=== PATIENT | male | born 1965 | race African-American/Black ===

== ENCOUNTER 2022-10-19 22:08 | Emergency (ER) | payer OTHER ==
--- NOTE | 2022-10-19 22:19 | ED Abdominal Pain ---
General Stated Complaint: ABDOMINAL PAIN Source of Information: Patient, EMS, EMS Notes Reviewed Exam Limitations: No Limitations History of Present Illness Date Seen by Provider: October 19, 2022 Time Seen by Provider: 22:10 Initial Comments 57-year-old male presents emergency department today via EMS for abdominal pain. This started about 40 minutes prior to arrival and has been constant, severe since that time. Described as sharp and starting in his periumbilical region radiating out diffusely throughout his abdomen. He had nausea just as the ambulance pulled into the ER but has not had nausea outside of this. No vomiting. No urinary symptoms. No changes in his bowels. No testicular or penile symptoms. He had a similar episode about a week ago that lasted most of the day and resolved on its own. He did not get evaluated at that time. He has had no abdominal surgeries. He has never had similar symptoms in the past. All other systems reviewed and negative except documented per HPI. Voice recognition software was used to help create this chart Allergies and Home Medications Allergies Coded Allergies: No Known Drug Allergies (Unverified , 10/19/22) Patient Home Medication List Home Medication List Reviewed: Yes Review of Systems Review of Systems Constitutional: see HPI Past Grppynz-Shtazg-Rvcuhm Hx Patient Social History Tobacco Use?: No Use of E-Cig and/or Vaping dev: No Substance use?: No Alcohol Use?: No Family Medical History Reviewed Nursing Family Hx No Pertinent Family Hx Physical Exam Vital Signs Vital Signs - First Documented 10/19/22 22:12 Pulse 82 Resp 16 B/P (MAP) 145/85 (105) Pulse Ox 99 O2 Delivery Room Air Capillary Refill : Height/Weight/BMI Height: '" Weight: lbs. oz. kg; BMI Method: General Appearance: WD/WN, no apparent distress HEENT: normal ENT inspection Neck: non-tender, full range of motion, supple, normal inspection Respiratory: chest non-tender, lungs clear, normal breath sounds, no respiratory distress, no accessory muscle use Cardiovascular: regular rate, rhythm, no murmur Gastrointestinal: normal bowel sounds, soft, no organomegaly, tenderness (Diffuse abdominal tenderness even with light palpation. Voluntary guarding without any rebound tenderness. No mass organomegaly. No skin changes.) Neurologic/Psychiatric: alert, normal mood/affect, oriented x 3 Skin: normal color, warm/dry Progress/Results/Core Measures Results/Orders Lab Results Laboratory Tests Test 10/19/22 22:16 10/19/22 22:34 Range/Units White Blood Count 8.3 4.3-11.0 10^3/uL Red Blood Count 4.16 L 4.30-5.52 10^6/uL Hemoglobin 12.6 L 13.3-17.7 g/dL Hematocrit 36 L 40-54 % Mean Corpuscular Volume 87 80-99 fL Mean Corpuscular Hemoglobin 30 25-34 pg Mean Corpuscular Hemoglobin Concent 35 32-36 g/dL Red Cell Distribution Width 13.6 10.0-14.5 % Platelet Count 216 130-400 10^3/uL Mean Platelet Volume 10.4 9.0-12.2 fL Immature Granulocyte % (Auto) 0 % Neutrophils (%) (Auto) 39 L 42-75 % Lymphocytes (%) (Auto) 52 H 12-44 % Monocytes (%) (Auto) 8 0-12 % Eosinophils (%) (Auto) 0 0-10 % Basophils (%) (Auto) 1 0-10 % Neutrophils # (Auto) 3.3 1.8-7.8 10^3/uL Lymphocytes # (Auto) 4.3 H 1.0-4.0 10^3/uL Monocytes # (Auto) 0.7 0.0-1.0 10^3/uL Eosinophils # (Auto) 0.0 0.0-0.3 10^3/uL Basophils # (Auto) 0.0 0.0-0.1 10^3/uL Immature Granulocyte # (Auto) 0.0 0.0-0.1 10^3/uL Neutrophils % (Manual) 37 % Lymphocytes % (Manual) 54 % Monocytes % (Manual) 7 % Eosinophils % (Manual) 2 % Clumped Platelets OCCASIONAL Percent Immature Platelet Fraction 3.7 0.0-7.6 % Blood Morphology Comment NORMAL Sodium Level 135 135-145 MMOL/L Potassium Level 6.3 H 3.6-5.0 MMOL/L Chloride Level 102 98-107 MMOL/L Carbon Dioxide Level 18 L 21-32 MMOL/L Anion Gap 15 H 5-14 MMOL/L Blood Urea Nitrogen 16 7-18 MG/DL Creatinine 1.12 0.60-1.30 MG/DL Estimat Glomerular Filtration Rate 76 BUN/Creatinine Ratio 14 Glucose Level 84 70-105 MG/DL Calcium Level 9.2 8.5-10.1 MG/DL Corrected Calcium 9.0 8.5-10.1 MG/DL Total Bilirubin 0.3 0.1-1.0 MG/DL Aspartate Amino Transf (AST/SGOT) 95 H 5-34 U/L Alanine Aminotransferase (ALT/SGPT) 47 0-55 U/L Alkaline Phosphatase 85 40-136 U/L Total Protein 8.3 H 6.4-8.2 GM/DL Albumin 4.3 3.2-4.5 GM/DL Lipase 37 8-78 U/L Smear Scan YES Urine Color YELLOW Urine Clarity CLEAR Urine pH 6.0 5-9 Urine Specific [place] <=1.005 1.016-1.022 Urine Protein NEGATIVE NEGATIVE Urine Glucose (UA) NEGATIVE NEGATIVE Urine Ketones NEGATIVE NEGATIVE Urine Nitrite NEGATIVE NEGATIVE Urine Bilirubin NEGATIVE NEGATIVE Urine Urobilinogen 0.2 < = 1.0 MG/DL Urine Leukocyte Esterase NEGATIVE NEGATIVE Urine RBC (Auto) NEGATIVE NEGATIVE Urine RBC NONE /HPF Urine WBC NONE /HPF Urine Crystals NONE /LPF Urine Bacteria NEGATIVE /HPF Urine Casts NONE /LPF Urine Mucus NEGATIVE /LPF Urine Culture Indicated NO My Orders Orders - OFELIA DSOUZA DO Comprehensive Metabolic Panel (10/19/22 22:16) Cbc And Manual Diff (10/19/22 22:16) Lipase (10/19/22 22:16) Urinalysis (10/19/22 22:16) Ct Abdomen/Pelvis W (10/19/22 22:16) Ns Iv 1000 Ml (Sodium Chloride 0.9%) (10/19/22 23:00) Vital Signs/I&O 10/19/22 22:12 Pulse 82 Resp 16 B/P (MAP) 145/85 (105) Pulse Ox 99 O2 Delivery Room Air Departure Communication (Admissions) After identifying hyperkalemia on his labs I ordered some IV fluids. Was getting ready to order some of the therapy including EKG. The patient declined this. He was on his way to CT scan but stated he felt much better and started asking to leave. I had advised him that hypokalemia can be life-threatening and cause heart rhythm abnormalities and he stated understanding. He request further treatment. He declined CT scan and states he will do his primary care doctor tomorrow. Again declines any other treatment at this time and requests to leave. He signed out AGAINST MEDICAL ADVICE. Impression Primary Impression: Abdominal pain Qualified Codes: R10.84 - Generalized abdominal pain Additional Impression: Hyperkalemia Disposition: AGAINST MEDICAL ADVICE Condition: Against Medical Advice Departure-Patient Inst. Patient Instructions: Abdominal Pain, Adult ED, Hyperkalemia Add. Discharge Instructions: You declined any further treatment in the emergency department. Please note that elevated potassium levels can be life-threatening can cause heart rhythm abnormalities as discussed. I recommend you stay and let us treat this however you have declined stating a video primary doctor tomorrow. And also declined a CT scan. Return to the emergency department for reevaluation if you change your mind or if your symptoms change in any way concerning to you. OFELIA DSOUZA DO October 19, 2022 22:19
[2022-10-19 22:26] LABS: BASOPHILS % (AUTO) 1 % (0-10); HEMOGLOBIN 12.6 g/dL (13.3-17.7); MEAN CORPUSCULAR HEMOGLOBIN 30 pg (25-34); MEAN PLATELET VOLUME 10.4 fL (9.0-12.2)
[2022-10-19 22:27] LABS: EOSINOPHILS % (AUTO) 0 % (0-10); HEMATOCRIT 36 % (40-54); LYMPHOCYTES # (AUTO) 4.3 10^3/uL (1.0-4.0); LYMPHOCYTES % (AUTO) 52 % (12-44); MEAN CORPUSCULAR HGB CONC 35 g/dL (32-36); MEAN CORPUSCULAR VOLUME 87 fL (80-99); MONOCYTES # (AUTO) 0.7 10^3/uL (0.0-1.0); MONOCYTES % (AUTO) 8 % (0-12); NEUTROPHILS # (AUTO) 3.3 10^3/uL (1.8-7.8); NEUTROPHILS % (AUTO) 39 % (42-75); WHITE BLOOD COUNT 8.3 10^3/uL (4.3-11.0)
[2022-10-19 22:41] LABS: BILIRUBIN,URINE NEGATIVE (NEGATIVE); CLARITY,URINE CLEAR; COLOR,URINE YELLOW; GLUCOSE, URINE (UA) NEGATIVE (NEGATIVE); KETONES,URINE NEGATIVE (NEGATIVE); LEUKOCYTE ESTERASE ,URINE NEGATIVE (NEGATIVE); NITRITE,URINE NEGATIVE (NEGATIVE); PROTEIN,URINE NEGATIVE (NEGATIVE)
[2022-10-19 22:47] LABS: ALBUMIN 4.3 GM/DL (3.2-4.5); BILIRUBIN,TOTAL 0.3 MG/DL (0.1-1.0); CALCIUM 9.2 MG/DL (8.5-10.1); CREATININE SERUM 1.12 MG/DL (0.60-1.30); POTASSIUM 6.3 MMOL/L (3.6-5.0); TOTAL PROTEIN 8.3 GM/DL (6.4-8.2)
[2022-10-19 22:57] LABS: PLATELET COUNT 216 10^3/uL (130-400)
[2022-10-19 22:58] LABS: EOSINOPHILS % (MANUAL) 2 %; LYMPHOCYTES % (MANUAL) 54 %; MONOCYTES % (MANUAL) 7 %; NEUTROPHILS % (MANUAL) 37 %; PLATELET CLUMPS OCCASIONAL; RBC MORPH NORMAL; SMEAR SCAN COMMENT YES
[2022-10-19 23:00] LABS: BACTERIA,URINE NEGATIVE /HPF
[2022-10-19] MEDS: NS IV 1000 ML 1,000 ML IV SCH ×2 (23:00→23:08)
[2022-10-19 23:07] VITALS: BP 124/98
[2022-10-21] MEDS ORDERED: ACHD5005 PO (11:41)
[2022-10-21] MEDS ORDERED: DOCU-143 PO (11:41)
== END 2022-10-19 23:10 | disposition left against medical advice (07) ==
LOC: EDUNIT# 22:08 → ER 22:09
DX: R10.84 Generalized abdominal pain (principal); E87.5 Hyperkalemia; Z28.310 Unvaccinated for COVID-19
CPT/HCPCS: 36415; 80053; 81000; 83690; 85007; 85027

== ENCOUNTER 2022-10-20 12:09 | Day surgery (SDC) | payer OTHER ==
[~2022-10-20] VITALS: Ht 185.4 cm; Wt 94.4 kg
[2022-10-20] VITALS (8 sets, daily range): BP systolic 96–129; BP diastolic 66–83
--- NOTE | 2022-10-20 12:39 | ED Abdominal Pain ---
General Chief Complaint: Abdominal/GI Problems Stated Complaint: ABD PAIN | FEVER Nursing Triage Note: PT AMB TO TRAIGE. PT CO OF FEVER UP TO 101 THIS AM, ABD PAIN 9/10, DIZZINESS PT SEEN IN ED LAST PM BUT STARTED FEELING BETTER AND LEFT AMA Source of Information: Patient Exam Limitations: No Limitations History of Present Illness Date Seen by Provider: October 20, 2022 Time Seen by Provider: 12:39 Initial Comments Patient is a 57-year-old male who presents to the emergency room with a chief complaint of periumbilical abdominal pain starting 2 days ago that has now b ecome generalized. Decreased appetite significant nausea. reports fever of 101 this morning. He has had no prior abdominal surgeries. He denies diarrhea, black or bloody stools. He states his urine is very "dark". Timing/Duration: 2-3 Days Severity/Quality: Severe, Aching Location: Generalized Abdomen Radiation: Flank (left flank) Associated Symptoms: Nausea/Vomiting (nausea without vomiting), Other (dark urine) Allergies and Home Medications Allergies Coded Allergies: No Known Drug Allergies (Unverified , 10/19/22) Patient Home Medication List Home Medication List Reviewed: Yes Docusate Sodium (Colace) 100 Mg Capsule, 100 MG PO BID Prescribed by: GREG WRIGHT on 10/21/22 1141 Hydrocodone/Acetaminophen (Hydrocodone-Acetamin 5-325 mg) 5 Mg-325 Mg Tablet, 1 EACH PO Q4H PRN for PAIN-MODERATE (5-7) Prescribed by: GREG WRIGHT on 10/21/22 1142 Review of Systems Review of Systems Constitutional: see HPI EENTM: No Symptoms Reported Respiratory: No Symptoms Reported Cardiovascular: No Symptoms Reported Gastrointestinal: Abdominal Pain, Nausea Genitourinary: Other (dark urine) Musculoskeletal: no symptoms reported Skin: no symptoms reported Past Nvplnug-Hippkf-Tbrywg Hx Patient Social History Tobacco Use?: No Smoking Status: Current Everyday Smoker Smokeless Tobacco Frequency: Current Everyday User Substance use?: No Alcohol Use?: Yes Alcohol type: Beer Alcohol Frequency: Daily Pt feels they are or have been: No Immunizations Up To Date Influenza Vaccine Up-to-Date: No; Not Current Past Medical History Surgery/Hospitalization HX: HTN Family Medical History No Pertinent Family Hx Physical Exam Vital Signs Capillary Refill : Less Than 3 Seconds Height/Weight/BMI Height: '" Weight: lbs. oz. kg; 27.00 BMI Method: General Appearance: WD/WN, no apparent distress HEENT: PERRL/EOMI Respiratory: lungs clear, normal breath sounds, no respiratory distress, no accessory muscle use Cardiovascular: regular rate, rhythm Gastrointestinal: abnormal bowel sounds (hypoactive), distended, rebound, tenderness Extremities: normal range of motion, non-tender, normal inspection, no pedal edema, normal capillary refill Neurologic/Psychiatric: alert, normal mood/affect, oriented x 3 Skin: normal color, warm/dry Progress/Results/Core Measures Results/Orders Lab Results Laboratory Tests Test 10/20/22 12:50 Range/Units White Blood Count 8.3 4.3-11.0 10^3/uL Red Blood Count 4.35 4.30-5.52 10^6/uL Hemoglobin 13.1 L 13.3-17.7 g/dL Hematocrit 38 L 40-54 % Mean Corpuscular Volume 87 80-99 fL Mean Corpuscular Hemoglobin 30 25-34 pg Mean Corpuscular Hemoglobin Concent 35 32-36 g/dL Red Cell Distribution Width 13.7 10.0-14.5 % Platelet Count 245 130-400 10^3/uL Mean Platelet Volume 10.6 9.0-12.2 fL Immature Granulocyte % (Auto) 0 % Neutrophils (%) (Auto) 83 H 42-75 % Lymphocytes (%) (Auto) 10 L 12-44 % Monocytes (%) (Auto) 6 0-12 % Eosinophils (%) (Auto) 0 0-10 % Basophils (%) (Auto) 0 0-10 % Neutrophils # (Auto) 6.9 1.8-7.8 10^3/uL Lymphocytes # (Auto) 0.8 L 1.0-4.0 10^3/uL Monocytes # (Auto) 0.5 0.0-1.0 10^3/uL Eosinophils # (Auto) 0.0 0.0-0.3 10^3/uL Basophils # (Auto) 0.0 0.0-0.1 10^3/uL Immature Granulocyte # (Auto) 0.0 0.0-0.1 10^3/uL Sodium Level 139 135-145 MMOL/L Potassium Level 3.9 3.6-5.0 MMOL/L Chloride Level 101 98-107 MMOL/L Carbon Dioxide Level 25 21-32 MMOL/L Anion Gap 13 5-14 MMOL/L Blood Urea Nitrogen 13 7-18 MG/DL Creatinine 1.23 0.60-1.30 MG/DL Estimat Glomerular Filtration Rate 68 BUN/Creatinine Ratio 11 Glucose Level 122 H 70-105 MG/DL Calcium Level 10.0 8.5-10.1 MG/DL Corrected Calcium 9.6 8.5-10.1 MG/DL Total Bilirubin 2.0 H 0.1-1.0 MG/DL Direct Bilirubin 1.5 H 0.0-0.3 MG/DL Aspartate Amino Transf (AST/SGOT) 471 H 5-34 U/L Alanine Aminotransferase (ALT/SGPT) 338 H 0-55 U/L Alkaline Phosphatase 148 H 40-136 U/L Total Protein 7.9 6.4-8.2 GM/DL Albumin 4.5 3.2-4.5 GM/DL Lipase 27 8-78 U/L My Orders Orders - HANNAH EARLY MD Ed Iv/Invasive Line Start (10/20/22 12:48) Cbc With Automated Diff (10/20/22 12:48) Comprehensive Metabolic Panel (10/20/22 12:48) Ct Abd/Pelv W (Appendicitis) (10/20/22 12:48) Ns Iv 1000 Ml (Sodium Chloride 0.9%) (10/20/22 12:48) Fentanyl Inj (Sublimaze Injection) (10/20/22 13:00) Ondansetron Injection (Zofran Injectio (10/20/22 13:00) Iohexol Injection (Omnipaque 350 Mg/Ml 1 (10/20/22 13:00) Received Contrast (Hold Metformin- Contr (10/20/22 13:00) Ns (Ivpb) (Sodium Chloride 0.9% Ivpb Bag (10/20/22 13:00) Acetaminophen Tablet (Tylenol Tablet) (10/20/22 15:00) Ns Iv 1000 Ml (Sodium Chloride 0.9%) (10/20/22 15:00) Lipase (10/20/22 14:59) Bilirubin,Direct (10/20/22 15:00) Us Gallbladder [id number] (10/20/22 15:16) Fentanyl Inj (Sublimaze Injection) (10/20/22 15:30) Piperacillin Sodium/Tazobactam (Zosyn Vi (10/20/22 16:45) Bupivacaine 0.5% W/Epi Inj (Sensorcaine (10/20/22 17:00) Medications Given in ED Vital Signs/I&O Blood Pressure Mean: 95 Progress Progress Note : Progress Note Patient seen and evaluated by me. Eval today includes physical exam, CBC, CH12 with a direct bili level. CT abd and pelvis as well as GB ultrasound. Physical exam is pertinent for WDWN male in mild distress due to abdominal pain. Heart is regular. Lungs are clear, Abdomen is diffusely tender with mild rebound. Hypoactive BS, + heel tap with voluntary guarding. No other concerning physical exam findings. DDx based on H&P includes acute appendicitis, ileus vs partial SBO. Labs reviewed - CBC is normal with WBC 8.3 (83 s) normal H/H. basic electrolytes and renal function WNL - LFT's significantly elevated with AST 471, ALT 338 and Alc phos 148, Total bili 2.0 and direct 1.5. This is a significant increase over just 12 hours when the patient left AMA earlier in the night. Concern for liver/GB pathology. INquired to the patient about etoh last night - reported none, infrequent use. PAtient treated with IV fluids, fentanyl and nausea meds. CAse discussed with Dr Wright (surg). CT was unremarkable for acute pathology and GB ultrasound was concerning for possible cholecystitis. Dr Wright came to the ED to see the patient and felt best case scenario was to take the patient for ex lap. Patient was advised of plan of care, shared decision making - agreeable. Diagnostic Imaging Diagonstic Imaging: CT Comments [facility] [place] NAME: TRAM HERNANDEZ [facility] REC#: [id number] PT STATUS: REG ER : 1965 PHYSICIAN: HANNAH EARLY MD ADMIT DATE: 10/20/22/ER Signed Date of Exam:10/20/22 CT ABD/PELV W (APPENDICITIS) CT ABD/PELV W (APPENDICITIS) TECHNIQUE: Multiple contiguous axial images were obtained through the abdomen and pelvis after administration of intravenous contrast. All CT scans use one or more of the following dose optimizing techniques: automated exposure control, MA and/or KvP adjustment based on patient size and exam type or iterative reconstruction. INDICATION: Right lower quadrant pain COMPARISON: None available. FINDINGS: Lower chest: The lung bases are clear. No pericardial or pleural effusion. Peritoneum: No free intraperitoneal air or fluid. Liver and biliary system: The liver is normal. The gallbladder is normal. No biliary duct dilation. Spleen and Pancreas: Spleen is normal. The pancreas enhances normally without mass lesion or peripancreatic inflammatory changes. Adrenals: Normal. tract: The kidneys enhance normally without suspicious mass or obstruction. Urinary bladder is distended without wall thickening. Prostate is normal. GI tract: Stomach is decompressed. No bowel obstruction. Sigmoid and descending colon diverticulosis without diverticulitis. Normal appendix. Vasculature and Lymph nodes: Normal caliber aorta. No abdominal or pelvic lymphadenopathy. Musculoskeletal: No concerning osseous lesion. IMPRESSION: 1. No acute obstructive or inflammatory process. 2. Normal appendix and no ureteral stones. Dictated by: Dictated on workstation # [id number] Dict: 10/20/22 1406 Trans: 10/20/22 1408 [facility] [id number] Interpreted by: ALISSON WATSON MD Electronically signed by: ALISSON WATSON MD 10/20/22 1408 Departure Communication (Admissions) Time/Spoke to Consulting Phy: 14:[address] Wright, will review CT Impression Primary Impression: Abdominal pain Qualified Codes: R10.30 - Lower abdominal pain, unspecified Additional Impressions: Cholelithiasis Elevated LFTs Disposition: ADMITTED INPATIENT Condition: Stable Admissions Decision to Admit/Date: October 20, 2022 Time/Decision to Admit Time: 17:21 Departure-Patient Inst. Referrals: GRZEGORZ PACK DO (PCP) Primary Care Physician Scripts Hydrocodone/Acetaminophen (Hydrocodone-Acetamin 5-325 mg) 5 Mg-325 Mg Tablet 1 EACH PO Q4H PRN for PAIN-MODERATE (5-7), #30 TAB Prov: GREG WRIGHT DO 10/21/22 Docusate Sodium (Colace) 100 Mg Capsule 100 MG PO BID, #30 CAP Prov: GREG WRIGHT DO 10/21/22 HANNAH EARLY MD October 20, 2022 12:39
[2022-10-20] MEDS ORDERED: NS IV 1000 ML 1,000 ML IV STA (12:48)
[2022-10-20] MEDS ORDERED: IOHEXOL 350 MG/ML 100 ML (OMNIPAQUE 350) VIAL IV ONE (13:00)
[2022-10-20] MEDS ORDERED: NS 100 ML (IVPB) BAG IV ONE (13:00)
[2022-10-20] MEDS ORDERED: HOLD METFORMIN - RECEIVED CONTRAST 20 ML VIAL IV SCH (13:00)
[2022-10-20] MEDS ORDERED: fentaNYL INJ 100 MCG/2 ML AMP IVP ONE ×2 (13:00→15:30)
[2022-10-20] MEDS ORDERED: ONDANSETRON 4 MG/2 ML (SDV) Z0FRAN IVP ONE (13:00)
[2022-10-20 13:26] LABS: ALBUMIN 4.5 GM/DL (3.2-4.5); POTASSIUM 3.9 MMOL/L (3.6-5.0)
[2022-10-20 13:28] LABS: TOTAL PROTEIN 7.9 GM/DL (6.4-8.2)
[2022-10-20 13:32] LABS: BASOPHILS % (AUTO) 0 % (0-10); CREATININE SERUM 1.23 MG/DL (0.60-1.30); EOSINOPHILS % (AUTO) 0 % (0-10); HEMATOCRIT 38 % (40-54); HEMOGLOBIN 13.1 g/dL (13.3-17.7); LYMPHOCYTES # (AUTO) 0.8 10^3/uL (1.0-4.0); LYMPHOCYTES % (AUTO) 10 % (12-44); MEAN CORPUSCULAR HEMOGLOBIN 30 pg (25-34); MEAN CORPUSCULAR HGB CONC 35 g/dL (32-36); MEAN CORPUSCULAR VOLUME 87 fL (80-99); MEAN PLATELET VOLUME 10.6 fL (9.0-12.2); MONOCYTES # (AUTO) 0.5 10^3/uL (0.0-1.0); MONOCYTES % (AUTO) 6 % (0-12); NEUTROPHILS # (AUTO) 6.9 10^3/uL (1.8-7.8); NEUTROPHILS % (AUTO) 83 % (42-75); PLATELET COUNT 245 10^3/uL (130-400); WHITE BLOOD COUNT 8.3 10^3/uL (4.3-11.0)
--- NOTE | 2022-10-20 14:09 | Diagnostic Imaging Report ---
CT ABD/PELV W (APPENDICITIS) TECHNIQUE: Multiple contiguous axial images were obtained through the abdomen and pelvis after administration of intravenous contrast. All CT scans use one or more of the following dose optimizing techniques: automated exposure control, MA and/or KvP adjustment based on patient size and exam type or iterative reconstruction. INDICATION: Right lower quadrant pain COMPARISON: None available. FINDINGS: Lower chest: The lung bases are clear. No pericardial or pleural effusion. Peritoneum: No free intraperitoneal air or fluid. Liver and biliary system: The liver is normal. The gallbladder is normal. No biliary duct dilation. Spleen and Pancreas: Spleen is normal. The pancreas enhances normally without mass lesion or peripancreatic inflammatory changes. Adrenals: Normal. tract: The kidneys enhance normally without suspicious mass or obstruction. Urinary bladder is distended without wall thickening. Prostate is normal. GI tract: Stomach is decompressed. No bowel obstruction. Sigmoid and descending colon diverticulosis without diverticulitis. Normal appendix. Vasculature and Lymph nodes: Normal caliber aorta. No abdominal or pelvic lymphadenopathy. Musculoskeletal: No concerning osseous lesion. IMPRESSION: 1. No acute obstructive or inflammatory process. 2. Normal appendix and no ureteral stones. Dictated by: Dictated on workstation # [id number]
[2022-10-20] MEDS ORDERED: NS IV 1000 ML 1,000 ML IV SCH (15:00)
[2022-10-20] MEDS ORDERED: ACETAMINOPHEN 500 MG TAB (TYLENOL) PO ONE (15:00)
[2022-10-20 15:14] LABS: BILIRUBIN,DIRECT 1.5 MG/DL (0.0-0.3)
--- NOTE | 2022-10-20 16:06 | Consultation - Surgery ---
MIKAL PALMER 10/20/22 1606: History of Present Illness History of Present Illness Patient Consulted On(ibeth/time) 10/20/22 16:04 Date Seen by Provider: October 20, 2022 Time Seen by Provider: 16:05 Reason for Visit: abdominal pain History of Present Illness Consult for Dr. Sy CC: Abdominal pain Per ED: Patient is a 57-year-old male who presents to the emergency room with a chief complaint of periumbilical abdominal pain starting 2 days ago that has now become generalized. Decreased appetite significant nausea. reports fever of 101 this morning. He has had no prior abdominal surgeries. He denies diarrhea, black or bloody stools. He states his urine is very "dark" Pt was seen in the emergency room and was able to isolate his pain to his lower left quadrant, he said the pain was radiating to his left flank and was a constant sharper pain. CT was unremarkable for inflammation or obstruction, and Ultra Sound was revealing of a few small stones within the gallbladder. He says its been about 24hrs since his last bowel movement and that he usually goes 2- 3x/day. He hasnt eaten/drank since last night, and says that nothing seems to be helping or worsening his symptoms. He is nauseas but denies chest pain, sob, diarrhea, chills and fevers currently. Allergies and Home Medications Allergies Coded Allergies: No Known Drug Allergies (Unverified , 10/19/22) Past Xpezrqb-Jnvcvj-Knofbm Hx Patient Social History Smoking Status: Current Everyday Smoker Alcohol Use?: Yes Have you traveled recently?: No Surgeries History of Surgeries: Yes (Right wrist) Family Medical History Significant Family History: No Pertinent Family Hx Review of Systems-General Constitutional: No chills, No weakness EENTM: No blurred vision, No hoarseness Respiratory: No cough, No dyspnea on exertion, No short of breath Cardiovascular: No chest pain, No palpitations Gastrointestinal: abdominal pain (LLQ); No diarrhea; nausea Genitourinary: No dysuria, No hematuria Musculoskeletal: back pain; No joint pain Skin: No lesions, No lumps Psychiatric/Neurological: Denies Headache, Denies Numbness, Denies Tremors Physical Exam-General Problems Physical Exam Vital Signs Vital Signs - First Documented 10/20/22 12:15 Temp 36.9 Pulse 107 Resp 16 B/P (MAP) 128/79 (95) Pulse Ox 100 Capillary Refill : Less Than 3 Seconds General Appearance: WD/WN, moderate distress HEENT: PERRL/EOMI; No photophobia Neck: non-tender, full range of motion Respiratory: chest non-tender, lungs clear Cardiovascular: no murmur, tachycardia Peripheral Pulses: 2+ Radial Pulses (R), 2+ Radial Pulses (L) Gastrointestinal: soft, no pulsatile mass, guarding; No rebound; tenderness Back: no vertebral tenderness, CVA tenderness (L) Extremities: normal range of motion, non-tender, no pedal edema, no calf tenderness Neurologic/Psychiatric: alert, oriented x 3; No aphasia Skin: damp; No ecchymosis Lymphatic: no adenopathy (anterior cervical) Data Review Labs Laboratory Tests 10/20/22 12:50: White Blood Count 8.3, Red Blood Count 4.35, Hemoglobin 13.1L, Hematocrit 38L, Mean Corpuscular Volume 87, Mean Corpuscular Hemoglobin 30, Mean Corpuscular Hemoglobin Concent 35, Red Cell Distribution Width 13.7, Platelet Count 245, Mean Platelet Volume 10.6, Immature Granulocyte % (Auto) 0, Neutrophils (%) (Auto) 83H, Lymphocytes (%) (Auto) 10L, Monocytes (%) (Auto) 6, Eosinophils (%) (Auto) 0, Basophils (%) (Auto) 0, Neutrophils # (Auto) 6.9, Lymphocytes # (Auto) 0.8L, Monocytes # (Auto) 0.5, Eosinophils # (Auto) 0.0, Basophils # (Auto) 0.0, Immature Granulocyte # (Auto) 0.0, Sodium Level 139, Potassium Level 3.9, Chloride Level 101, Carbon Dioxide Level 25, Anion Gap 13, Blood Urea Nitrogen 13, Creatinine 1.23, Estimat Glomerular Filtration Rate 68, BUN/Creatinine Ratio 11, Glucose Level 122H, Calcium Level 10.0, Corrected Calcium 9.6, Total Bilirubin 2.0H, Direct Bilirubin 1.5H, Aspartate Amino Transf (AST/SGOT) 471H, Alanine Aminotransferase (ALT/SGPT) 338H, Alkaline Phosphatase 148H, Total Protein 7.9, Albumin 4.5, Lipase 27 Assessment/Plan Assessment/Plan Assessment/Plan Abdominal Pain Nausea Hyperbilirubinemia * CT imaging unremarkable for obstruction/inflammation, left testicular hydrocele noted. * small stones seen in gallblader via US, common bile duct appeared patent * will await reports on further imaging * will continue to monitor patient with ED for any need of surgical intervention GREG CHAU DO 10/20/22 1644: History of Present Illness History of Present Illness History of Present Illness Seen and evaluated in ED. Patient is a 57 year old male having periumbilical pain. Had about a week but last 2 days has worsened and now constant sharp pain. Radiates into back. Having nausea. Fever present. Not wanting food. Had ct scan with no significant findings. U/s done and shows stone and distended gallbladder. From last night labs had elevated liver enzymes and bilirubin increased. Allergies and Home Medications Allergies Coded Allergies: No Known Drug Allergies (Unverified , 10/19/22) Patient Home Medication List Home Medication List Reviewed: Yes Past Nkbegat-Hsywal-Qyvtgg Hx Patient Social History Smoking Status: Current Someday Smoker Alcohol Use?: Yes Surgeries History of Surgeries: Yes (Right wrist) Respiratory History of Respiratory Disorde: No Cardiovascular History of Cardiac Disorders: No Neurological History of Neurological Disord: No Genitourinary History of Genitourinary Disor: No Gastrointestinal History of Gastrointestinal Di: No Musculoskeletal History of Musculoskeletal Dis: No Endocrine History of Endocrine Disorders: No HEENT History of HEENT Disorders: No Cancer History of Cancer: No Psychosocial History of Psychiatric Problem: No Integumentary History of Skin or Integumenta: No Blood Transfusions History of Blood Disorders: No Adverse Reaction to a Blood Tr: No Reviewed Nursing Assessment Reviewed/Agree w Nursing PMH: Yes Family Medical History Significant Family History: No Pertinent Family Hx Review of Systems-General Constitutional: No chills; fever; No weakness EENTM: No blurred vision, No hoarseness Gastrointestinal: abdominal pain (LLQ); No diarrhea; nausea; No vomiting Genitourinary: No decreased output, No discharge Musculoskeletal: back pain; No joint pain Skin: No change in color, No change in hair/nails Psychiatric/Neurological: Denies Anxiety, Denies Depressed, Denies Emotional Problems All Other Systems Reviewed Negative Unless Noted: Yes (Negative excepted noted.) Physical Exam-General Problems Physical Exam General Appearance: WD/WN, no apparent distress (but uncomfortable); No moderate distress HEENT: PERRL/EOMI, normal ENT inspection Neck: non-tender, full range of motion Respiratory: chest non-tender, lungs clear Cardiovascular: regular rate, rhythm, no JVD, tachycardia Gastrointestinal: soft; No guarding, No rebound; tenderness (periumbilical pain); No hernia Rectal: No deferred Back: no CVA tenderness, no vertebral tenderness Extremities: normal range of motion, non-tender Neurologic/Psychiatric: alert, normal mood/affect, oriented x 3 Skin: normal color, warm/dry Lymphatic: no adenopathy (anterior cervical) Assessment/Plan Assessment/Plan Assessment/Plan Abdominal Pain cholelithiasis with distended gallbladder Nausea Hyperbilirubinemia * CT imaging unremarkable for obstruction/inflammation, left testicular hydrocele noted. * small stones seen in gallblader via US, common bile duct appeared patent * consent for laparoscopic cholecystectomy all other indicated procedures. * feel likely source of patient symptoms are from the gallbladder, chance they are not. Liver enzymes increased and bilirubin as well possible cbd stone causing obstruction ioc will help determine this as well. Supervisory-Addendum Brief Verification & Attestation Participated in pt care: history, MDM, physical Personally performed: exam, history, MDM, supervision of care Care discussed with: Medical Student Procedures: n/a Results interpretation: Verified all documentation Verification and Attestation of Medical Student E/M Service A medical student performed and documented this service in my presence. I reviewed and verified all information documented by the medical student and made modifications to such information, when appropriate. I personally performed the physical exam and medical decision making. Greg Chau, October 20, 2022,16:50 MIKAL PALMER October 20, 2022 16:06 GREG CHAU DO October 20, 2022 16:44
--- NOTE | 2022-10-20 16:17 | Diagnostic Imaging Report ---
PROCEDURE: US Gallbladder. INDICATION: Abdominal pain, hyperbilirubinemia TECHNIQUE: Multiple grayscale sonographic images were obtained of the right upper quadrant of the abdomen. CORRELATION STUDY: None FINDINGS: LIVER: There is uniform echotexture within the visualized portions of the liver. The main portal vein is patent and with normal direction of flow. Liver size 16.9 x 10.2 cm. GALLBLADDER: Somewhat distended at 9.7 x 2.7 cm. Several small mobile gallstones are present. Gallbladder wall thickness within normal limits. COMMON BILE DUCT: Borderline dilated at 0.7 cm. Barron sign reported as negative. PANCREAS: Visualized portions appearing unremarkable. AORTA/IVC: Not well visualized. RIGHT KIDNEY: 9.9 x 5.6 x 5.5 cm. No hydronephrosis. OTHER: None. IMPRESSION: 1. Distended gallbladder with multiple small gallstones. No definitive findings to suggest acute cholecystitis. Dictated by: Dictated on workstation # [id number]
[2022-10-20] MEDS ORDERED: PIPERACILLIN SODIUM/TAZOBACTAM 4.5 GM in NS (IVPB) 100 ML IV ONE (16:45)
[2022-10-20] MEDS ORDERED: BUP/EPI 0.5% 1:200,000 (SENSORCAINE) 30 ML VIAL ONE (17:00)
[2022-10-20] MEDS ORDERED: ONDANSETRON 4 MG/2 ML (SDV) Z0FRAN ONE ×2 (17:34→18:01)
[2022-10-20] MEDS ORDERED: LIDOCAINE PF 2% 5 ML (XYLOCAINE) VIAL ONE (17:34)
[2022-10-20] MEDS ORDERED: MIDAZOLAM 2 MG/2 ML (VERSED) VIAL ONE (17:34)
[2022-10-20] MEDS ORDERED: ROCURONIUM 50 MG/5 ML (ZEMURON) VIAL IV ONE (17:34)
[2022-10-20] MEDS ORDERED: proPOfol 200 MG/20 ML (DIPRIVAN) VIAL IV ONE (17:34)
[2022-10-20] MEDS ORDERED: SEVOFLURANE (ULTANE) 15 ML INHAL SOLN ONE ×2 (17:34→18:42)
[2022-10-20] MEDS ORDERED: fentaNYL INJ 100 MCG/2 ML AMP ONE ×2 (17:34→18:01)
[2022-10-20] MEDS ORDERED: HYDROmorphone 2 MG/ML VIAL (DILAUDID) ONE (18:01)
[2022-10-20] MEDS ORDERED: morphine INJ 10 MG/ML 1ML (SYR OR VIAL) ONE (18:01)
[2022-10-20] MEDS ORDERED: MEPERIDINE (DEMEROL) INJ 50 MG/ML ONE (18:04)
[2022-10-20] MEDS ORDERED: GLYCOPYRROLATE 0.2 MG/ML (ROBINUL) 2 ML VIAL ONE (18:38)
[2022-10-20] MEDS ORDERED: NEOSTIGMINE (BLOXIVERZ ) 1 MG/1ML 10 ML VIAL ONE (18:38)
--- NOTE | 2022-10-20 18:47 | Progress Note-Post Operative ---
Post-Operative Progess Note Surgeon (s)/Internet Marketing Intern (s) Surgeon GREG WRIGHT DO Internet Marketing Intern: Dr. Marrufo to assist with retraction dissection and closure. Pre-Operative Diagnosis cholelithiasis Post-Operative Diagnosis cholecystitis, cholelithiasis, common bile duct stones Procedure & Operative Findings Date of Procedure 10/20/22 Procedure Performed/Findings PROCEDURE: Laparoscopic cholecystectomy with intraoperative cholangiogram. COMPLICATIONS: None. PROCEDURE: The patient was taken to the operating suite and was prepped and draped in sterile fashion. A surgical pause was performed. Just superior to the umbilicus, a 12 mm incision was made. Dissection was taken down to the fascia, which was then scored and grasped with a Irwin and the abdomen was then entered. A 0 Vicryl suture was placed in a pwjzks-wh-cdkxp fashion and a English trocar was placed and secured. Pneumoperitoneum was achieved. A 5mm trochar place in the subxyphoid and 2 in the right upper quadrant. The gallbladder was then grasped and elevated and adhesions stuck to the gallbladder and liver were taken down with cautery and blunt dissection. The cystic duct, and cystic artery were then dissected out. Clip was placed on the distal portion of the cystic duct which was then partially transected. An arrow catheter was inserted into the duct. The cholangiogram was then performed. Distal cbd filing defects were present and some contrast made its way into the duodenum. Catheter removed. Clips were placed on proximal portion of the cystic duct and then the duct was then transected. Clips were placed along the proximal and distal portion of the cystic artery which was then transected. Hook cautery was used to dissect the gallbladder from the gallbladder fossa achieving hemostasis. The gallbladder was placed in an Endobag and removed through the 12 mm trocar site. The abdomen was then reinspected. Copious amounts of irrigation were used to irrigate the abdomen and there were no signs of active bleeding. Hemostasis had been achieved. The 12 mm fascial defect was then closed with 0 Vicryl suture that had been placed in a [id number] fashion. The abdomen was then desufflated, the trocars were removed. The abdomen was then washed and dried. The skin was then closed using 4-0 Monocryl in a subcuticular fashion. The abdomen was washed and dried and Skin Affix was place over incisions. Patient tolerated the procedure well without any complications and was taken to the recovery room in stable condition. Will need set up for ERCP. Anesthesia Type general Estimated Blood Loss Estimated blood loss (mL): minimal Specimens/Packing Specimens Removed gallbladder GREG WRIGHT DO October 20, 2022 18:47
--- NOTE | 2022-10-20 18:51 | Diagnostic Imaging Report ---
CLINICAL INDICATION: Patient with lap cholecystectomy. EXAM: Single fluoroscopic image involving the right upper quadrant region for intraoperative antegrade cholangiogram. COMPARISON: Right upper quadrant ultrasound dated 10/20/2022. FINDINGS AND IMPRESSION: There is contrast filling the biliary duct. Please see clinician's report for more detail. Fluoroscopy was provided for clinician and a total of 10.6 seconds and 6.10 mGy was provided. Dictated by: Dictated on workstation # [id number]
[2022-10-20] MEDS ORDERED: LACTATED RINGERS 1,000 ML BAG IV SCH (19:00)
[2022-10-20] MEDS ORDERED: ONDANSETRON 4 MG/2 ML (SDV) Z0FRAN IVP PRN (19:00)
[2022-10-20] MEDS ORDERED: HYDROcodone/APAP 5 MG/325 MG (LORTAB) TAB PO PRN (19:00)
[2022-10-20] MEDS: LACTATED RINGERS 1,000 ML IV SCH (21:38)
[2022-10-21] MEDS: PIPERACILLIN SODIUM/TAZOBACTAM 4.5 GM in NS (IVPB) 100 ML IV SCH ×2 (02:09→07:59)
[2022-10-21 03:03] VITALS: BP 116/71
[2022-10-21 05:25] LABS: HEMATOCRIT 32 % (40-54); HEMOGLOBIN 11.1 g/dL (13.3-17.7); MEAN CORPUSCULAR HEMOGLOBIN 30 pg (25-34); MEAN CORPUSCULAR HGB CONC 34 g/dL (32-36); MEAN CORPUSCULAR VOLUME 88 fL (80-99); MEAN PLATELET VOLUME 10.4 fL (9.0-12.2); PLATELET COUNT 198 10^3/uL (130-400); WHITE BLOOD COUNT 9.3 10^3/uL (4.3-11.0)
[2022-10-21 05:36] LABS: ALBUMIN 3.5 GM/DL (3.2-4.5); POTASSIUM 3.7 MMOL/L (3.6-5.0)
[2022-10-21 05:37] LABS: CALCIUM 8.8 MG/DL (8.5-10.1)
[2022-10-21 05:38] LABS: TOTAL PROTEIN 6.5 GM/DL (6.4-8.2)
[2022-10-21 05:40] LABS: BILIRUBIN,TOTAL 3.3 MG/DL (0.1-1.0)
[2022-10-21 05:42] LABS: CREATININE SERUM 0.98 MG/DL (0.60-1.30)
[2022-10-21] MEDS: LACTATED RINGERS 1,000 ML IV SCH (05:43)
--- NOTE | 2022-10-21 07:46 | Progress Note - Surgery ---
MIKAL PALMER 10/21/22 0746: Subjective Date Seen by a Provider: October 21, 2022 Time Seen by a Provider: 07:40 Subjective/Events-last exam Pt was seen lying in bed, doing well, he said he is still having a lot of pain in the same places, LLQ and RLQ but worse on the left, he only had concerns abo ut getting to [place] and said his and father in law would pick him up to take him to get the ERCP done. He denied feeling feverish or having chills, no vomiting or diarrhea, and said that he is agreeable to leaving to head to [place]. Review of Systems General: No Chills, No Night Sweats, No Malaise; Appetite (hungry bc of NPO) HEENT: No Head Aches, No Visual Changes Pulmonary: No Dyspnea, No Cough Cardiovascular: No: Chest Pain, Palpitations Gastrointestinal: Abdominal Pain; No: Nausea, Vomiting Genitourinary: No Dysuria, No Incontinence, No Hematuria Musculoskeletal: No: neck pain, shoulder pain Neurological: No: Weakness, Numbness, Change in speech Objective Exam Vital Signs Date Time Temp Pulse Resp B/P (MAP) Pulse Ox O2 Delivery O2 Flow Rate FiO2 10/21/22 06:34 Room Air 0.00 10/21/22 03:03 37.0 82 18 116/71 (86) 95 Room Air 10/21/22 02:00 95 Room Air 10/20/22 23:45 96 Nasal Cannula 1.00 10/20/22 23:15 36.8 98 20 123/75 (91) 98 Nasal Cannula 3.00 3.00 10/20/22 19:55 Nasal Cannula 3.00 10/20/22 19:55 Nasal Cannula 3.00 10/20/22 19:50 36.2 20 124/83 (97) 98 Nasal Cannula 3.00 10/20/22 19:45 Nasal Cannula 3.00 10/20/22 19:40 20 129/83 (98) 99 Nasal Cannula 3.00 10/20/22 19:30 Nasal Cannula 3.00 10/20/22 19:30 20 129/83 (98) 100 Nasal Cannula 3.00 10/20/22 19:20 20 123/80 (94) 96 Room Air 10/20/22 19:15 OxyMask 5.00 10/20/22 19:10 20 123/81 (95) 98 OxyMask 5.00 10/20/22 19:00 20 116/79 (91) 98 OxyMask 5.00 10/20/22 19:00 OxyMask 5.00 10/20/22 18:53 OxyMask 5.00 10/20/22 18:53 36.2 20 96/66 (76) 100 OxyMask 5.00 10/20/22 17:20 107 16 128/79 100 10/20/22 14:59 36.9 10/20/22 12:59 36.9 10/20/22 12:15 36.9 107 16 128/79 (95) 100 I & O 10/21/22 07:00 Intake Total 2000 ml Output Total 1025 ml Balance 975 ml Capillary Refill : Less Than 3 SecondsLess Than 3 Seconds General Appearance: WD/WN, Mild Distress HEENT: PERRL/EOMI, Moist Mucous Membranes; No Photophobia Neck: Non Tender, Supple; No Lymphadenopathy (L), No Lymphadenopathy (R) Respiratory: Chest Non Tender, Lungs Clear, No Accessory Muscle Use, No Respiratory Distress Cardiovascular: Regular Rate, Rhythm, No Murmur Peripheral Pulses: 2+ Radial Pulses (R), 2+ Radial Pulses (L) Gastrointestinal: soft, distended, guarding, rebound, tenderness Extremity: Non Tender, No Calf Tenderness, No Pedal Edema Neurologic/Psychiatric: Alert, Oriented x3 Skin: Warm/Dry; No Ecchymosis, No Erythema, No Rash Lymphatic: No Adenopathy Results Lab Laboratory Tests 10/20/22 12:50: White Blood Count 8.3, Red Blood Count 4.35, Hemoglobin 13.1L, Hematocrit 38L, Mean Corpuscular Volume 87, Mean Corpuscular Hemoglobin 30, Mean Corpuscular Hemoglobin Concent 35, Red Cell Distribution Width 13.7, Platelet Count 245, Mean Platelet Volume 10.6, Immature Granulocyte % (Auto) 0, Neutrophils (%) (Auto) 83H, Lymphocytes (%) (Auto) 10L, Monocytes (%) (Auto) 6, Eosinophils (%) (Auto) 0, Basophils (%) (Auto) 0, Neutrophils # (Auto) 6.9, Lymphocytes # (Auto) 0.8L, Monocytes # (Auto) 0.5, Eosinophils # (Auto) 0.0, Basophils # (Auto) 0.0, Immature Granulocyte # (Auto) 0.0, Sodium Level 139, Potassium Level 3.9, Chloride Level 101, Carbon Dioxide Level 25, Anion Gap 13, Blood Urea Nitrogen 13, Creatinine 1.23, Estimat Glomerular Filtration Rate 68, BUN/Creatinine Ratio 11, Glucose Level 122H, Calcium Level 10.0, Corrected Calcium 9.6, Total Bilirubin 2.0H, Direct Bilirubin 1.5H, Aspartate Amino Transf (AST/SGOT) 471H, Alanine Aminotransferase (ALT/SGPT) 338H, Alkaline Phosphatase 148H, Total Protein 7.9, Albumin 4.5, Lipase 27 10/21/22 05:11: White Blood Count 9.3, Red Blood Count 3.69L, Hemoglobin 11.1L, Hematocrit 32L, Mean Corpuscular Volume 88, Mean Corpuscular Hemoglobin 30, Mean Corpuscular Hemoglobin Concent 34, Red Cell Distribution Width 13.8, Platelet Count 198, Mean Platelet Volume 10.4, Sodium Level 138, Potassium Level 3.7, Chloride Level 103, Carbon Dioxide Level 22, Anion Gap 13, Blood Urea Nitrogen 8, Creatinine 0.98, Estimat Glomerular Filtration Rate 89, BUN/Creatinine Ratio 8, Glucose Level 136H, Calcium Level 8.8, Corrected Calcium 9.2, Total Bilirubin 3.3H, Aspartate Amino Transf (AST/SGOT) 228H, Alanine Aminotransferase (ALT/SGPT) 256H , Alkaline Phosphatase 128, Total Protein 6.5, Albumin 3.5 Assessment/Plan Assessment/Plan Assessment/Plan Abdominal Pain cholelithiasis with distended gallbladder Nausea Hyperbilirubinemia s/p cholecystectomy * CT imaging unremarkable for obstruction/inflammation, left testicular hydrocele noted. * wounds c/d/i * Pt going to be sent to [place] for ERCP * f/u with reddy in two weeks MICHAEL CHAU DO 10/21/22 1150: Subjective Subjective/Events-last exam Feeling better today. Still with pain but different than yesterday. NPO for ERCP today. Discussed with Dr. Zacarias. To be there about 1430. Denies n/v fever sweats chills shortness of breath or chest pain. Objective Exam General Appearance: No Apparent Distress, WD/WN; No Mild Distress HEENT: PERRL/EOMI, Scleral Icterus (L) (slight), Scleral Icterus (R) (slight) Neck: Non Tender, Supple Respiratory: Chest Non Tender, No Accessory Muscle Use, No Respiratory Distress Cardiovascular: Regular Rate, Rhythm, No JVD Gastrointestinal: soft; No distended, No guarding, No rebound; tenderness (incisions c/d/i incisional tenderness) Extremity: Non Tender, No Calf Tenderness Neurologic/Psychiatric: Alert, Oriented x3 Skin: Warm/Dry, Jaundice (slight) Lymphatic: No Adenopathy Assessment/Plan Assessment/Plan Assessment/Plan Abdominal Pain periumbilical cholelithiasis with distended gallbladder choledocholithiasis Nausea Hyperbilirubinemia s/p cholecystectomy c ioc * CT imaging unremarkable for obstruction/inflammation, left testicular hydrocele noted. * wounds c/d/i * Pt going to be sent to [place] for ERCP remain NPO * f/u with reddy in two weeks Final Diagnosis Abdominal Pain periumbilical cholelithiasis with distended gallbladder choledocholithiasis Nausea Hyperbilirubinemia s/p cholecystectomy c ioc Supervisory-Addendum Brief Verification & Attestation Participated in pt care: history, MDM, physical Personally performed: exam, history, MDM, supervision of care Care discussed with: Medical Student Procedures: n/a Results interpretation: Verified all documentation Verification and Attestation of Medical Student E/M Service A medical student performed and documented this service in my presence. I reviewed and verified all information documented by the medical student and made modifications to such information, when appropriate. I personally performed the physical exam and medical decision making. Michael Chau, October 21, 2022,11:50 MIKAL PALMER October 21, 2022 07:46 MICHAEL CHAU DO October 21, 2022 11:50
[2022-10-21] MEDS: morphine INJ 4 MG/ML 1 ML (VIAL/SYRINGE) IVP PRN ×2 (07:59→10:23)
[2022-10-21 08:36] VITALS: BP 122/83
[2022-10-21] MEDS ORDERED: DOCU-143 PO (11:41)
[2022-10-21] MEDS ORDERED: ACHD5005 PO (11:41)
--- NOTE | 2022-10-21 11:44 | Discharge Inst-Simple/Standard ---
Discharge Inst-Standard Discharge Medications New, Converted or Re-Newed RX: Transmitted to Pharmacy Patient Instructions/Follow Up Plan of Care/Instructions/FU: 2 weeks reddy Stay nothing to eat or drink. Go to [facility] and be there by 2:[address] Zacarias for ERCP. Activity as Tolerated: No Discharge Diet: Other Diet (Nothing to eat or drink.) Other Inst to Patient Follow up Appt: Make appointment for [address] Zacarias today. Nothing to eat or drink until after your ERCP. Be at [facility] by 2:30 pm. Instructions: No lifting greater than 10 pounds. No strenuous activity. May shower in 24 hours, no tub bath or soaking. Use incentive spirometer at home as directed. No Smoking Skin/Wound Care: You have special glue over incision, it will fall off on it's own. Symptoms to Report: Appetite Changes, Extremity Discoloration, Numbness/Tingling, Swelling Increased, Bleeding Excessive, Eyesight Changes, Pain Increased, Urine Color Change, Constipation(Persistent), Fever over 101 degree F, Pain/Pressure in chest, Urinating Difficulty, Cough Up/Vomit Blood, Heart Beat Irreg/Pounding, Pain/Pressure in jaw, Vaginal Bleeding Increase, Cramps in feet or legs, Lighth eadedness, Pain/Pressure in shoulder, Diarrhea(Persistent), Memory Changes Suddenly, Questions/Concerns, Weight gain consecutive days, Dizziness/Fainting, Nausea/Vomiting, Shortness of Breath, Weight gain over 2 pounds. If eyes or skin turn yellow notify physician. If questions or concerns contact your physician Or seek help at emergency department. GREG WRIGHT DO October 21, 2022 11:44
[2022-10-21 11:48] VITALS: BP 137/79
[2022-10-21 14:30] VITALS: BP 137/79
--- NOTE | 2022-10-21 14:50 | Anesthesia-General Post-Op ---
General Patient Condition Mental Status/LOC: Same as Preop Cardiovascular: Satisfactory Nausea/Vomiting: Absent Respiratory: Satisfactory Pain: Controlled Complications: Absent Post Op Complications Complications None Follow Up Care/Instructions Patient Instructions None needed. Anesthesia/Patient Condition Patient Condition Patient was already discharged to home during postop rounds. Pt was doing well prior to his discharge to home with no complaints, stable vital signs, no apparent adverse anesthesia problems. No complications reported per nursing. MAYRA CHATTERJEE DO October 21, 2022 14:50
== END 2022-10-21 14:33 | disposition home or self-care (01) ==
LOC: EDUNIT# 12:09 → ER 12:11 → SDC 17:28 → 4TH 20:30 → SDC 10-21 14:33
PROVIDERS: ATTEND Surgery
DX: K80.66 Calculus of gallbladder and bile duct with acute and chronic cholecystitis without obstruction (principal); E80.6 Other disorders of bilirubin metabolism; R94.5 Abnormal results of liver function studies; F17.210 Nicotine dependence, cigarettes, uncomplicated
CPT/HCPCS: 36415; 74177; 76000; 76705; 80053; 82248; 83690; 85025; 85027; 94664; 96361; 96374; 96375; 96376